=== PATIENT | female | born 1970 | race Caucasian/White ===

== ENCOUNTER → 2018-03-03 | Outpatient (CLI) | payer MEDICAID, MEDICARE ==
[~2018-03-03] VITALS: Ht 165.1 cm; Wt 117.5 kg
[~2018-03-03] MED LIST: ACTOS/METFORMIN; ASPI-84 PO; ASPI-892 PO; ASPI-983 PO; BCL10T; BPR150TCR PO; BUDE6HFA IH; CATHETER FLUSH 10 ML SYR IV PRN; CLOP75TA28 PO; CLOP75TA69 PO; CPR500T PO; CTLP20T; FAMO20TA5; GABA-490 PO; GLIM4TAB PO; GLIP10TA13; GLUCOPHAGE; HYDR-34 PO; INSASP10V SQ; INSU100I14 SQ; INSU100I16 SQ; INSU100V5 SQ; INSU100V6 SQ; JANUVIA; LISI-597 PO; LISI10TA PO; LORA10TA56 PO; LRT10T PO; LTH300C; LYRICA; MELO15TA39 PO; MELO7.5T; MELO7.5T PO; METF-380 PO; METO-387 PO; NAPR-243 PO; NAPR250T34; NF-ESOM40C; NF-ESOM40C PO; OMEP-10 PO; PGLT30T; PIOG1TAB; PIOG1TAB PO; PRAV10TA PO; PRAZOSIN; QTP200T; REGADENOSON 0.4 MG/5 ML SYR (LEXISCAN) IV ONE; ROSU20TA PO; SITA100T; SMV20T PO; SUCR1TAB PO; TR025C15 TP; TR1O15 TP; TRAM50TA2 PO; TRM50T PO; VNL75CCR; WELBUTRIN; ZOCOR; [UNRECOGNIZED DRUG - CODE] PO; [UNRECOGNIZED DRUG - REMARK]
[2018-03-03 08:03] LABS: BASOPHILS % (AUTO) 0 % (0-10); EOSINOPHILS # (AUTO) 0.1 10^3/uL (0.0-0.3); EOSINOPHILS % (AUTO) 3 % (0-10); HEMATOCRIT 46 % (35-52); HEMOGLOBIN 15.7 G/DL (11.5-16.0); LYMPHOCYTES # (AUTO) 1.2 X 10^3 (1.0-4.0); LYMPHOCYTES % (AUTO) 27 % (12-44); MEAN CORPUSCULAR HEMOGLOBIN 31 PG (25-34); MEAN CORPUSCULAR HGB CONC 35 G/DL (32-36); MEAN CORPUSCULAR VOLUME 89 FL (80-99); MEAN PLATELET VOLUME 9.4 FL (7.4-10.4); MONOCYTES # (AUTO) 0.4 X 10^3 (0.0-1.0); MONOCYTES % (AUTO) 10 % (0-12); NEUTROPHILS # (AUTO) 2.6 X 10^3 (1.8-7.8); NEUTROPHILS % (AUTO) 60 % (42-75); PLATELET COUNT 255 10^3/uL (130-400); RED BLOOD COUNT 5.14 10^6/uL (4.35-5.85); RED CELL DISTRIBUTION WIDTH 12.7 % (10.0-14.5); WHITE BLOOD COUNT 4.4 10^3/uL (4.3-11.0)
[2018-03-03 08:21] LABS: ALANINE AMINOTRANSFERASE 27 U/L (0-55); ALBUMIN 4.1 GM/DL (3.2-4.5); ALKALINE PHOSPHATASE 62 U/L (40-136); BILIRUBIN,TOTAL 0.7 MG/DL (0.1-1.0); BUN/CREATININE RATIO 22; CALCIUM 9.6 MG/DL (8.5-10.1); CARBON DIOXIDE 20 MMOL/L (21-32); CHLORIDE 107 MMOL/L (98-107); CHOLESTEROL 254 MG/DL (< 200); CREATININE SERUM 0.77 MG/DL (0.60-1.30); GFR ESTIMATED > 60; GLUCOSE 212 MG/DL (70-105); HDL CHOLESTEROL 56 MG/DL (40-60); SODIUM 140 MMOL/L (135-145); TOTAL PROTEIN 6.9 GM/DL (6.4-8.2); TRIGLYCERIDES 159 MG/DL (<150); VLDL CHOLESTEROL 32 MG/DL (5-40)
[2018-03-03 08:41] LABS: ERYTHROCYTE SEDIMENTATION RATE 11 MM/HR (0-20)
--- NOTE | 2018-03-04 14:52 | STRESS TEST ---
DATE OF SERVICE: 03/03/2018 RESTING AND POST REGADENOSON TECHNETIUM-99M TETROFOSMIN SPECT CT IMAGING CLINICAL DIAGNOSES: Coronary artery disease, hypertension, diabetes and shortness of breath. Baseline images were carried out after injection of 9.01 mCi of technetium-99m Tetrofosmin. This was followed by 0.4 mg Regadenoson and 27.5 mCi of technetium-99m Tetrofosmin for stress imaging. The electrocardiogram showed sinus rhythm at baseline. It did not change significantly with the Regadenoson infusion. The patient tolerated the procedure well. Review of images at rest and following stress does not indicate any distinct perfusion defects consistent with significant myocardial ischemia or infarction. Some degree of diaphragmatic attenuation was seen both at rest and following Regadenoson infusion. Gated images show normal global left ventricular systolic function with normal regional wall motion, including the diaphragmatic wall of the left ventricle. Left ventricular ejection fraction is 63%. Left ventricular end diastolic volume is 56 mL. TID is absent (1.11). CONCLUSIONS: 1. No evidence of any significant myocardial ischemia or infarction. 2. Normal regional wall motion. 3. Normal global left ventricular systolic function with a calculated ejection fraction of 63%. Job ID: [id number] DocumentID: [id number] Dictated Date: 03/04/2018 14:25:57 Aerial Advertiser Date: 03/04/2018 14:51:00 Dictated By: GALINA BARKER MD, MA, FACP, FACC,
== END ==
LOC: CARD 06:58
PROVIDERS: ATTEND Internal Medicine Cardiovascular Disease
DX: I25.10 Atherosclerotic heart disease of native coronary artery without angina pectoris (principal); E11.9 Type 2 diabetes mellitus without complications; I10 Essential (primary) hypertension; E78.5 Hyperlipidemia, unspecified; R06.02 Shortness of breath; E66.9 Obesity, unspecified; Z68.41 Body mass index [BMI] 40.0-44.9, adult
CPT/HCPCS: 36415; 78452; 80053; 80061; 83735; 84443; 85025; 85652; 93017

== ENCOUNTER → 2019-09-07 | Outpatient (CLI) | payer MEDICARE ==
[~2019-09-07] MED LIST changes: -CATHETER FLUSH 10 ML SYR IV PRN; -GLIM4TAB PO; +GLIM4TAB5 PO; -METO-387 PO; +MTP25TSR PO; -REGADENOSON 0.4 MG/5 ML SYR (LEXISCAN) IV ONE; -ROSU20TA PO; +ROSU20TA2 PO; -TRAM50TA2 PO
--- NOTE | 2019-09-07 10:36 | Diagnostic Imaging Report ---
PROCEDURE: CT chest without contrast. TECHNIQUE: Multiple contiguous axial images were obtained through the chest without the use of intravenous contrast. Auto Exposure Controls were utilized during the CT exam to meet ALARA standards for radiation dose reduction. INDICATION: Chronic cough. Tobaccoism for 32 years. COMPARISON: No prior studies are available for comparison. No axillary lymphadenopathy is identified. A lymph node in the high right peritracheal location demonstrates a short axis measurement of 7 mm. Additional smaller mediastinal lymph nodes in the paratracheal and prevascular regions are noted. Opal are difficult to evaluate due to absence of intravenous contrast. There are coronary arterial calcifications present. No pericardial or pleural fluid is identified. Central airways appear to be patent. Pulmonary parenchymal evaluation demonstrates small slightly nodular densities in the inferior right upper lobe measuring 6 and 7 mm in size. More inferiorly in the lingula is a slightly irregular nodule measuring 8 mm. No other pulmonary parenchymal abnormalities are seen. Upper abdomen is unremarkable. IMPRESSION: Indeterminate subcentimeter parenchymal nodular densities in the inferior right upper lobe and the lingula. These are too small to percutaneously biopsy. Consideration could be given to performance of a PET scan. If no additional study is performed, short interval CT follow-up with a repeat study in approximately 6 months would be recommended to confirm stability. Dictated by: Dictated on workstation # [id number]
== END ==
LOC: RAD 08:06
PROVIDERS: ATTEND Pediatrics
DX: R91.8 Other nonspecific abnormal finding of lung field (principal); R05 Cough
CPT/HCPCS: 71250

== ENCOUNTER → 2019-10-03 | Outpatient (CLI) | payer MEDICARE ==
--- NOTE | 2019-10-03 14:41 | Diagnostic Imaging Report ---
INDICATION: Multiple lung nodules noted on recent CT. TECHNIQUE: Serum blood glucose level at the time of injection is 200 mg/dL. Patient was administered 13.2 mCi F-18 FDG intravenously in the right forearm and PET imaging was performed from the top of skull through mid thighs. Noncontrast CT was also performed for attenuation correction and anatomic correlation. All CT scans use one or more of the following dose optimizing techniques: automated exposure control, MA and/or KvP adjustment based on a patient size and exam type, or iterative reconstruction. COMPARISON: No prior PET/CT studies are available for comparison. Comparison is made with conventional noncontrast CT chest performed on 09/07/2019. FINDINGS: Symmetric activity throughout the brain is noted. No suspicious hypermetabolism in the soft tissues of the neck is identified. Imaging through the chest does show some hypermetabolic foci in the right hilum and right subcarinal location, consistent with hypermetabolism with enlarged lymph nodes. SUV max in the right hilum is approximately 5.6. Subcarinal node demonstrates SUV max of approximately 6.9. No pulmonary parenchymal hypermetabolism is seen. Specifically, the small nodules noted on recent CT chest in the region of the right middle lobe and right upper lobe do not appear to be hypermetabolic. The lymph node in the high right paratracheal location does not appear to be hypermetabolic. Left hilum does show some smaller hypermetabolic foci with SUV max of approximately 4.2. Abdomen and pelvis demonstrate physiologic activity within the GI and tracts. No suspicious regions of hypermetabolism are identified. IMPRESSION: There are areas of hypermetabolism in the bilateral veronika and mediastinum. No pulmonary parenchymal hypermetabolism is seen. While findings could be secondary to reactive changes or perhaps from granulomatous infection, neoplastic or lymphomatous process cannot be entirely excluded. Close follow-up with conventional CT chest with IV contrast would be recommended. Dictated by: Dictated on workstation # [id number]
== END ==
LOC: RAD 09-26 07:38
PROVIDERS: ATTEND Pediatrics
DX: R91.8 Other nonspecific abnormal finding of lung field (principal)

== ENCOUNTER → 2019-10-10 | Outpatient (CLI) | payer MEDICARE ==
[~2019-10-10] MED LIST changes: +HOLD METFORMIN - RECEIVED CONTRAST 20 ML VIAL IV SCH; +IOHEXOL 350 MG/ML 100 ML (OMNIPAQUE 350) VIAL IV ONE; +NS 100 ML (IVPB) BAG IV ONE
--- NOTE | 2019-10-10 09:38 | Diagnostic Imaging Report ---
PROCEDURE: CT chest with contrast only. TECHNIQUE: Multiple contiguous axial images were obtained through the chest after administration of intravenous contrast. Auto Exposure Controls were utilized during the CT exam to meet ALARA standards for radiation dose reduction. DATE: October 10, 2019. COMPARISON: CT chest September 07, 2019. PET/CT October 03, 2019. CT chest July 07, 2006. INDICATION: 49-year-old female, chronic cough. Evaluation for hilar adenopathy. FINDINGS: On axial image 54, there are two adjacent right middle lobe pleurally based pulmonary nodules with the larger nodule measuring 6 mm in size and the adjacent smaller nodule measuring 5 mm in size. These nodules are along the right minor fissure. There is a nodule in the lingula on axial image 80 measuring 9 mm in size. There is no additional focal airspace consolidation. There is no pneumothorax. There is no pleural effusion. The central airways are patent. There are several right hilar lymph nodes such as on axial image 59 measuring up to 1.7 cm in short axis. There is a subcarinal lymph node on axial image 57 measuring 1.7 cm in short axis. There are left hilar lymph nodes which measure up to approximately 10 mm in short axis. AP window lymph nodes are present measuring up to approximately 6 mm in short axis. There is a precarinal lymph node on axial image 43 measuring 7 mm in short axis. There is a right paratracheal lymph node on axial image 36 measuring 7 mm in short axis. There is no identified abnormally enlarged axillary lymph node or supraclavicular lymph node. There is a low-attenuation nodule in the right lobe of the thyroid measuring approximately 1.5 cm in size. The heart is not enlarged. There is no identified pericardial effusion. There is no identified large central pulmonary embolus. The study is very limited for evaluation of segmental and subsegmental pulmonary emboli. The patient is status post cholecystectomy. There is an accessory splenule on axial image 126. Additional evaluation of the imaged portions of the upper abdomen is unremarkable. There are multilevel degenerative changes of the spine. There is a lucent lesion with internal fat on sagittal image 115 involving the T9 vertebral body. The presence of internal fat is highly suggestive of a benign finding. IMPRESSION: 1. Abnormally enlarged right hilar, subcarinal, left hilar, and additional mildly prominent mediastinal lymph nodes as detailed above. These are new since 2006 and at least the right hilar and subcarinal lymph nodes are FDG avid on the recent PET/CT. Lymphoma, metastatic thania disease, and benign processes such as sarcoidosis or other benign etiologies are in the differential diagnosis. Prompt workup for definitive diagnosis is needed. 2. There is a 9 mm pulmonary nodule in the lingula and pleurally based right middle lobe pulmonary nodules which are subcentimeter in size and not FDG avid on the prior recent PET/CT. Recommend short-term followup CT chest in 3 months to evaluate for potential stability. The 9 mm nodule in the lingula is unchanged since September 07, 2019. Dictated by: Dictated on workstation # [id number]
== END ==
LOC: RAD 08:30
PROVIDERS: ATTEND Pediatrics
DX: R59.0 Localized enlarged lymph nodes (principal); R05 Cough; R91.1 Solitary pulmonary nodule
CPT/HCPCS: 71260

== ENCOUNTER → 2020-01-18 | Outpatient (CLI) | payer MEDICARE ==
[~2020-01-18] MED LIST changes: +ASPI-1238 PO; -ASPI-983 PO; -HOLD METFORMIN - RECEIVED CONTRAST 20 ML VIAL IV SCH; -IOHEXOL 350 MG/ML 100 ML (OMNIPAQUE 350) VIAL IV ONE; -NS 100 ML (IVPB) BAG IV ONE
[2020-01-18 13:46] VITALS: BP 101/60
== END ==
LOC: RT 13:00
PROVIDERS: ATTEND Internal Medicine Critical Care Medicine
DX: D86.9 Sarcoidosis, unspecified (principal)
CPT/HCPCS: 94060; 94726; 94729; 94761

== ENCOUNTER → 2020-06-18 | Outpatient (CLI) | payer MEDICARE ==
--- NOTE | 2020-06-18 09:16 | Diagnostic Imaging Report ---
EXAMINATION: CT Chest without contrast. TECHNIQUE: Multiple contiguous axial images were obtained through the chest without the use of intravenous contrast. All CT scans use one or more of the following dose optimizing techniques: automated exposure control, MA and/or KvP adjustment based on a patient size and exam type, or iterative reconstruction. HISTORY: Sarcoidosis, pulmonary nodules. COMPARISON: 10/10/2019 FINDINGS: There is no edema or pneumonia. No pleural effusion. No pneumothorax. No suspicious nodules. There are few stable perifissural lymph nodes along the right minor fissure. No perilymphatic nodules or bronchovascular thickening. There is no axillary or supraclavicular lymphadenopathy. There is stable subcarinal lymphadenopathy with subcarinal nodes measuring up to 11 mm. Heart size is normal. There are moderate coronary artery calcifications. No pericardial effusion. Aorta is normal in caliber. Limited views of the upper abdomen show an absent gallbladder. There are no suspicious osseous lesions. IMPRESSION: 1. Stable subcarinal lymphadenopathy. 2. No suspicious pulmonary nodules. Stable perifissural lymph nodes along the minor fissure. Dictated by: Dictated on workstation # [id number]
== END ==
PROVIDERS: ATTEND Internal Medicine Critical Care Medicine
DX: D86.9 Sarcoidosis, unspecified (principal); R59.0 Localized enlarged lymph nodes; R91.8 Other nonspecific abnormal finding of lung field
CPT/HCPCS: 71250

== ENCOUNTER → 2021-05-13 | Outpatient (CLI) | payer MEDICARE ==
--- NOTE | 2021-05-13 13:45 | Diagnostic Imaging Report ---
EXAMINATION: CT chest without contrast. TECHNIQUE: Multiple contiguous axial images were obtained through the chest without the use of intravenous contrast. All CT scans use one or more of the following dose optimizing techniques: automated exposure control, MA and/or KvP adjustment based on patient size and exam type or iterative reconstruction. HISTORY: Sarcoidosis COMPARISON: 06/18/2020 FINDINGS: There are new mild areas of peribronchial vascular reticulations predominantly in the upper lobes. This also involves the left lower lobe to a small degree. No pleural effusion. No pneumothorax. No suspicious nodules. There is no axillary or supraclavicular lymphadenopathy. Subcarinal lymph node is increased in size measuring 2.3 cm previously 1.7 cm. Other mediastinal lymph nodes are also mildly increased in size. Heart size is normal. There are severe coronary artery calcifications. No pericardial effusion. Aorta is normal in caliber. Limited views of the upper abdomen show changes of cholecystectomy. There are no suspicious osseus lesions. IMPRESSION: 1. New mild perihilar microvascular reticulations and ground glass concerning for progression of sarcoidosis. 2. Mediastinal lymph nodes have mildly increased in size as well. Dictated by: Dictated on workstation # [id number]
== END ==
PROVIDERS: ATTEND Internal Medicine Critical Care Medicine
DX: D86.9 Sarcoidosis, unspecified (principal); R91.8 Other nonspecific abnormal finding of lung field; R59.0 Localized enlarged lymph nodes
CPT/HCPCS: 71250

== ENCOUNTER 2021-11-19 07:03 | Outpatient (CLI) | payer MEDICARE ==
[~2021-11-19] VITALS: Ht 170.2 cm; Wt 132.9 kg
[2021-11-19] MEDS ORDERED: ALIR75PE5 SQ (16:30)
[2021-11-19] MEDS ORDERED: INSU100I29 SQ (16:30)
[2021-11-19] MEDS ORDERED: MULT-974 PO (16:30)
[2021-11-19] MEDS ORDERED: LORA10TA7 PO (16:30)
[2021-11-19] MEDS ORDERED: DAPA5TAB PO (16:30)
== END 2021-11-19 16:39 | disposition home or self-care (01) ==
LOC: PREOP 07:03
PROVIDERS: ATTEND Surgery
DX: Z01.818 Encounter for other preprocedural examination (principal)

== ENCOUNTER 2021-12-02 10:28 | Day surgery (SDC) | payer MEDICARE ==
[~2021-12-02] VITALS: Ht 170 cm; Wt 132.9 kg
[~2021-12-02 10:28] MED LIST changes: +ALIR75PE5 SQ; +DAPA5TAB PO; +INSU100I29 SQ; +LORA10TA7 PO; +MULT-974 PO
[2021-12-02] MEDS ORDERED: LACTATED RINGERS 1,000 ML IV ONE (10:36)
[2021-12-02] MEDS ORDERED: LACTATED RINGERS 1,000 ML IV STA (10:39)
[2021-12-02 10:55] VITALS: BP 151/80
[2021-12-02] MEDS ORDERED: DAPA10TA PO (11:03)
[2021-12-02] MEDS ORDERED: INSU100I29 SQ (11:03)
[2021-12-02] MEDS ORDERED: CARV6.252 PO (11:03)
[2021-12-02] MEDS ORDERED: METH2.5T PO (11:03)
[2021-12-02] MEDS ORDERED: LOSA50TA2 PO (11:03)
[2021-12-02] MEDS ORDERED: FOLI1TAB33 PO (11:03)
[2021-12-02] MEDS ORDERED: FLUT9.9S NS (11:03)
[2021-12-02] MEDS ORDERED: LIRA0.6P3 SQ (11:03)
[2021-12-02] MEDS ORDERED: INSU100C3 SQ (11:03)
[2021-12-02] MEDS ORDERED: PROP40TA5 PO (11:03)
[2021-12-02] MEDS ORDERED: PROPOFOL INJECTION 50 ML IV ONE ×2 (11:37→12:05)
--- NOTE | 2021-12-02 11:53 | Progress Note-Pre Operative ---
Pre-Operative Progress Note Date of Available H&P: Nov 05, 2021 Date H&P Reviewed: Dec 02, 2021 Time H&P Reviewed: 11:30 History & Physical: H&P Reviewed, Patient Examed, No changes noted Pre-Operative Diagnosis: family hx colon cancer and personal hx polyps EDUARDO OSEI DO Dec 02, 2021 11:53
--- NOTE | 2021-12-02 12:27 | Progress Note-Post Operative ---
Post-Operative Progess Note Surgeon (s)/Twist Maker (s) Surgeon EDUARDO OSEI DO Twist Maker: na Pre-Operative Diagnosis family hx colon cancer and personal hx polyps Post-Operative Diagnosis colon polyps Procedure & Operative Findings Date of Procedure 12/02/21 Procedure Performed/Findings colonoscopy c hot bx polypectomy x 3 Anesthesia Type per arnp Estimated Blood Loss Estimated blood loss (mL): none Specimens/Packing Specimens Removed colon polyps EDUARDO OSEI DO Dec 02, 2021 12:27
--- NOTE | 2021-12-02 12:28 | Discharge Inst-Simple/Standard ---
Discharge Inst-Standard Patient Instructions/Follow Up Plan of Care/Instructions/FU: 2 weeks Mitchell Activity as Tolerated: Yes Discharge Diet: Regular Diet EDUARDO OSEI DO Dec 02, 2021 12:28
[2021-12-02 12:30] VITALS: BP 123/82
[2021-12-02 12:35] VITALS: BP 119/57
[2021-12-02 13:05] VITALS: BP 132/77
--- NOTE | 2021-12-02 14:03 | Anesthesia-General Post-Op ---
MAC Patient Condition Mental Status/LOC: Same as Preop Cardiovascular: Satisfactory Nausea/Vomiting: Absent Respiratory: Satisfactory Pain: Controlled Complications: Absent Post Op Complications Complications None Follow Up Care/Instructions Patient Instructions None needed. Anesthesiology Discharge Order Discharge Order Patient is doing well, no complaints, stable vital signs, no apparent adverse anesthesia problems. No complications reported per nursing. KELSIE NUNEZ CRNA Dec 02, 2021 14:03
--- NOTE | 2021-12-02 19:40 | OPERATIVE REPORT ---
DATE OF SERVICE: 12/02/2021 PREOPERATIVE DIAGNOSES: Family history of colon cancer, personal history of polyps. POSTOPERATIVE DIAGNOSIS: Colon polyps. PROCEDURE: Colonoscopy with hot biopsy polypectomy x3. SURGEON: Eduardo Medrano DO ANESTHESIA: Per STAGE TECHNICIAN. ESTIMATED BLOOD LOSS: None. COMPLICATIONS: None. SPECIMENS: Colon polyps. INDICATIONS: The patient is a 51-year-old female with family history of colon cancer and history of polyps. She understands risks and benefits of procedure and wishes to proceed. Consent was signed in the chart. DESCRIPTION OF PROCEDURE: The patient was taken to the endoscopy suite, placed in left lateral recumbent position. Timeout was performed. Digital rectal exam was performed. No palpable polyps, masses or ulcerations. Scope was inserted in the rectum and advanced all the way to cecum with minimal difficulty. Prep was adequate with irrigation and suction. Scope was slowly retracted back. No polyps, masses or ulcerations within the cecum, ascending colon, transverse colon, two small polyps were present, hot biopsy polypectomies were performed. Scope was then slowly retracted back. No polyps, masses or ulcerations within the descending and sigmoid colon. Once in the rectum, another polyp was present, which hot biopsy polypectomy was performed. Scope was inserted and retracted multiple times, noting no other pathology. Scope was then removed, noting no other pathology. RECOMMENDATIONS: The patient will follow up on pathology. We would recommend repeat colonoscopy in 3 years. Further recommendations pending pathology. Job ID: [id number] DocumentID: [id number] Dictated Date: 12/02/2021 12:30:32 Family Dentist Date: 12/02/2021 19:39:52 Dictated By: EDUARDO MEDRANO DO
== END 2021-12-02 13:20 | disposition home or self-care (01) ==
LOC: ENDO 10:28
PROVIDERS: ATTEND Surgery
DX: D12.3 Benign neoplasm of transverse colon (principal); K62.1 Rectal polyp; R15.9 Full incontinence of feces; Z80.0 Family history of malignant neoplasm of digestive organs; Z79.82 Long term (current) use of aspirin; Z79.4 Long term (current) use of insulin; Z87.891 Personal history of nicotine dependence; E66.01 Morbid (severe) obesity due to excess calories; Z68.42 Body mass index [BMI] 45.0-49.9, adult; Z95.5 Presence of coronary angioplasty implant and graft
CPT/HCPCS: 84703; 88305

== ENCOUNTER → 2022-02-27 | Outpatient (CLI) | payer MEDICARE ==
[~2022-02-27] MED LIST changes: +CARV6.252 PO; +DAPA10TA PO; +FLUT9.9S NS; +FOLI1TAB33 PO; +INSU100C3 SQ; +LIRA0.6P3 SQ; +LOSA50TA2 PO; +METH2.5T PO; +PROP40TA5 PO
== END ==
LOC: CARD 09:25
PROVIDERS: ATTEND Pediatrics
DX: I49.8 Other specified cardiac arrhythmias (principal)
CPT/HCPCS: 93225; 93226

== ENCOUNTER 2022-04-14 06:42 | Day surgery (SDC) | payer MEDICARE ==
[~2022-04-14] VITALS: Ht 170.2 cm; Wt 129.2 kg
[~2022-04-14 06:42] MED LIST changes: +CLOP-31 PO; -CLOP75TA69 PO
[2022-04-14] MEDS ORDERED: NS IV 1000 ML 1,000 ML IV SCH (07:00)
[2022-04-14] MEDS ORDERED: HEParin (CATH LAB) 2,000 ML IV ONE (07:05)
[2022-04-14] MEDS ORDERED: NS IV 1000 ML 1,000 ML ONE (07:05)
[2022-04-14] MEDS ORDERED: LIDOCAINE 1% INJ 30 ML (XYLOCAINE) VIAL ONE (07:05)
[2022-04-14 07:27] VITALS: BP 144/76
[2022-04-14 07:38] LABS: HEMATOCRIT 46 % (35-52); HEMOGLOBIN 15.8 g/dL (11.5-16.0); MEAN CORPUSCULAR HEMOGLOBIN 32 pg (25-34); MEAN CORPUSCULAR HGB CONC 34 g/dL (32-36); MEAN CORPUSCULAR VOLUME 92 fL (80-99); MEAN PLATELET VOLUME 9.6 fL (9.0-12.2); PLATELET COUNT 270 10^3/uL (130-400); WHITE BLOOD COUNT 6.3 10^3/uL (4.3-11.0)
[2022-04-14 07:46] LABS: INR 0.9 (0.8-1.4); PROTHROMBIN TIME PATIENT 12.7 SEC (12.2-14.7)
[2022-04-14] MEDS ORDERED: CLOP-31 PO (07:48)
[2022-04-14] MEDS ORDERED: CARV12.53 PO (07:48)
[2022-04-14] MEDS ORDERED: LOSA50TA2 PO (07:48)
[2022-04-14] MEDS ORDERED: INSU100I14 SQ (07:48)
[2022-04-14] MEDS ORDERED: PANT40TA52 PO (07:48)
[2022-04-14] MEDS ORDERED: INSU100I32 SQ (07:48)
[2022-04-14] MEDS ORDERED: LIRA0.6P SQ (07:48)
[2022-04-14] MEDS ORDERED: DAPA10TA PO (07:48)
[2022-04-14 07:56] LABS: ALBUMIN 4.2 GM/DL (3.2-4.5); BILIRUBIN,TOTAL 1.3 MG/DL (0.1-1.0); CALCIUM 9.2 MG/DL (8.5-10.1); CREATININE SERUM 0.74 MG/DL (0.60-1.30); TOTAL PROTEIN 7.4 GM/DL (6.4-8.2)
[2022-04-14] MEDS ORDERED: fentaNYL INJ 100 MCG/2 ML AMP ONE ×2 (08:03→09:25)
[2022-04-14] MEDS ORDERED: MIDAZOLAM 5 MG/5 ML (VERSED) VIAL ONE (08:03)
[2022-04-14] MEDS ORDERED: NITRO DRIP 25000 MCG/D5W 250 ML IV ONE ×2 (08:48→10:22)
[2022-04-14] MEDS ORDERED: HEParin 1000 UNIT/ML (10ML VIAL) FOR BOLUS ONE (08:48)
[2022-04-14] MEDS ORDERED: morphine INJ 4 MG/ML 1 ML (VIAL/SYRINGE) ONE ×2 (09:09→10:20)
[2022-04-14] MEDS ORDERED: MIDAZOLAM 2 MG/2 ML (VERSED) VIAL ONE ×2 (09:20→09:56)
[2022-04-14] MEDS ORDERED: niCARdipine IV 50 MG (PYXIS DRIP KIT) ONE (09:59)
[2022-04-14] MEDS ORDERED: NS (IVPB) 0 ML ONE (09:59)
[2022-04-14] MEDS ORDERED: HEParin (CATH LAB) 1,000 ML IV ONE (10:09)
[2022-04-14] MEDS ORDERED: ADENOSINE 6 MG/2 ML (ADENOCARD) VIAL IV ONE (10:09)
[2022-04-14] MEDS ORDERED: NS (IVPB) 250 ML ONE (10:09)
[2022-04-14] MEDS ORDERED: EPTIFIBATIDE BOLUS 20 ML IV ONE (10:26)
[2022-04-14] MEDS ORDERED: EPTIFIBATIDE BOLUS 10 ML IV ONE (10:31)
--- NOTE | 2022-04-14 11:03 | Cardiac Procedure Note-CS/ASA ---
Pre-Procedure Note Pre-Op Procedure Note Date of Available H&P: Mar 30, 2022 Date H&P Reviewed: Apr 14, 2022 Time H&P Reviewed: 08:30 History & Physical: H&P Reviewed, No changes noted Conscious Sedation Pre-Proced ASA Score 3 For ASA 3 and 4: Consider anesthesia and medical clearance. Also, for patients with a history of failed moderate sedation consider anesthesia. Airway Lungs Heart ASA score ASA 1: a normal healthy patient ASA 2: a patient with a mild systemic disease (mid diabetes, controlled hypertension, obesity ASA 3: a patient with a severe systemic disease that limits activity (angina, COPD, prior Myocardial infarction) ASA 4: a patient with an incapacitating disease that is a constant threat to life (CHF, renal failure) ASA 5: a moribund patient not expected to survive 24 hrs. (ruptured aneurysm) ASA 6: a declared brain- patient whose organs are being harvested. For emergent operations, add the letter E after the classification Mallampati Classification Grade 3 Sedation Plan Analgesia, Amnesia, Plan communicated to team members The patient is an appropriate candidate to undergo the planned procedure, sedation, and anesthesia. The patient immediately re-assessed prior to indication. GALINA BARKER MD FACP [facility] Apr 14, 2022 11:03
[2022-04-14] MEDS ORDERED: CLOPIDOGREL 75 MG (PLAVIX) TABLET ONE (11:04)
[2022-04-14] MEDS ORDERED: ASPIRIN 81 MG CHEW (CHILDREN'S ASA) ONE (11:04)
[2022-04-14] MEDS ORDERED: INSULIN DEGLUDEC 110 UNIT SQ SCH (11:15)
[2022-04-14] MEDS ORDERED: PATIENT MAY USE OWN MEDS, ALL PO SCH (11:15)
[2022-04-14] MEDS ORDERED: morphine INJ 10 MG/ML 1ML (SYR OR VIAL) IVP PRN (11:15)
[2022-04-14 11:20] VITALS: BP 136/80
[2022-04-14 11:30] VITALS: BP 136/82
[2022-04-14] MEDS: NS IV 1000 ML 1,000 ML IV SCH ×2 (12:00→21:33)
[2022-04-14] MEDS: inSUlin ASPART (NovoLOG) 1 UNIT/0.01 ML (CHARGE PER UNIT) SQ SCH ×2 (13:00→20:07)
[2022-04-14] MEDS ORDERED: ATROPINE INJ 0.4 MG/ML SDV ONE (13:20)
[2022-04-14 15:46] VITALS: BP 130/83
[2022-04-14] MEDS ORDERED: GABAPENTIN 400 MG (NEURONTIN) CAP PO SCH (21:00)
--- NOTE | 2022-04-15 07:53 | Progress Note - Cardiology ---
Cardiology SOAP Progress Note Subjective: Lying in bed C/O mild tenderness at right groin site No c/o SOB or palpitations C/O tenderness in her chest Objective: I&O/Vital Signs 04/14/22 04/15/22 04/15/22 04/15/22 23:49 01:00 03:28 07:18 Temp 36.4 36.1 Pulse 87 86 88 92 Resp 18 20 B/P (MAP) 129/73 (91) 132/78 (96) Pulse Ox 98 96 O2 Delivery Room Air Room Air 04/15/22 07:32 Temp 36.1 Pulse 88 Resp 24 B/P (MAP) 117/81 (93) Pulse Ox 97 04/15/22 00:00 Intake Total 1320 ml Output Total 1000 ml Balance 320 ml Weight (Pounds): 259 Weight (Ounces): 0.0 Weight (Calculated Kilograms): 117.136409 Side: right Groin site without hematoma: Yes Condition: DP/PT pulses palpable, extremity w/d/p Bruising: mild bruising Constitutional: AAO x 3, well-developed, well-nourished Respiratory: No accessory muscle use, No respiratory distress; chest expansion is symmetric, chest is bilaterally symmetric, lungs clear to auscultation Cardiovascular: regular rate-rhythm; No JVD; S1 and S2 Gastrointestional: No tender; soft, round, audible bowel sounds Extremities: no lower extremity edema bilateral Neurologic/Psychiatric: grossly intact (moves all extremities) Skin: No rash on exposed areas, No ulcerations on exposed areas Results/Procedures: Labs Laboratory Tests 04/14/22 16:12: Glucometer 150H 04/14/22 20:04: Glucometer 216H Microbiology 04/14/22 MRSA Screen - Final, Complete MRSA not isolated A/P: Assessment: Coronary artery disease - Cardiac cath November 2014: primarily consisting of 95% in-stent restenosis within a MiniVision 2 x 18 mm stent that was placed in the LAD November 2014. To this, successful balloon angioplasty was carried out, followed by drug eluting stenting with Promus Premier 2.5 x 28 mm stent on 02/09/15, which reduced the s tenosis to 0%residual; the distal right coronary artery has approximately 60% stenosis that was not intervened on; there was normal global left ventricular systolic function with an ejection fraction of approximately 65%; LVEDP was elevated; there was no significant MR - MPI of Mar 03, 2018 showed no evidence of any significant myocardial ischemia or infarction. LVEF63%Hypertension - ECG on 03/30/22: NSR cannot exclude ole ASMI or IMI (unchanged compared to ECG of 02/20/15) - S/P cardiac cath on 04-14-22 with successful PCI Palpitations - Holter of 04/29/21 is reported to hae shown a few PVCs but symptoms have since worsened Hyperlipidemia - reported intolerance to Pravastatin; intol to atorvastatin (memory loss) DM 2 IBS GERD Quit smoking in 2014 Carotid dz - Carotid us of Mar 14, 2018 showed mild bilat carotid disease Plan: Ok to discharge home today if lab is ok - BMP and CBC pending this morning Continue current medication regimen Advise f/u in 3-4 weeks or sooner if needed SOFIA REHMAN Apr 15, 2022 07:53
--- NOTE | 2022-04-15 07:55 | Discharge Inst-Cardiology ---
Discharge Inst-Cardiac Discharge Medications Continued Medications: Aspirin (Aspirin EC) 81 Mg Tablet.dr 81 MG PO DAILY, TAB Carvedilol (Carvedilol) 12.5 Mg Tablet 12.5 MG PO BID, TAB Clopidogrel Bisulfate (Plavix) 75 Mg Tablet 75 MG PO DAILY, TAB Dapagliflozin Propanediol (Farxiga) 10 Mg Tablet 10 MG PO DAILY, TAB Fluticasone Propionate (Flonase Allergy Relief) 50 Mcg/Actuation [place].susp 1 SPRAY NS DAILY, #1 EACH 1 SPRAY EACH NARE DAILY Folic Acid (Folic Acid) 1 Mg Tablet 1 MG PO DAILY, TAB Gabapentin (Gabapentin) 400 Mg Capsule 400 MG PO HS, CAP Insulin Aspart (Novolog Flexpen) 100 Unit/Ml (3 Ml) Solution 60 UNITS SQ TID, EA Insulin Degludec (Tresiba Flextouch U-100) 100 Unit/Ml (3 Ml) Insuln.pen 110 UNIT SQ AM, EA Liraglutide (Victoza 2-Lanre) 0.6 Mg/0.1 Ml (18 Mg/3 Ml) Pen.injctr 2.4 MG SQ DAILY, EA Loratadine (Loratadine) 10 Mg Tablet 10 MG PO DAILY, TAB Losartan Potassium (Cozaar) 50 Mg Tablet 50 MG PO DAILY, TAB Methotrexate Sodium (Methotrexate) 2.5 Mg Tablet 15 MG PO WEDNESDAY, TAB TAKES 6 OF THE 2.5 MG TABLETS ON WEDNESDAY Pantoprazole Sodium (Pantoprazole Sodium) 40 Mg Tablet.dr 40 MG PO DAILY, TAB Patient Instructions Patient Instructions: Please schedule follow up appointment to see Dr. Davies in 3-4 weeks SOFIA REHMAN Apr 15, 2022 07:55
[2022-04-15] MEDS: NS IV 1000 ML 1,000 ML IV SCH (08:21)
[2022-04-15] MEDS: inSUlin ASPART (NovoLOG) 1 UNIT/0.01 ML (CHARGE PER UNIT) SQ SCH ×2 (08:58→12:14)
[2022-04-15] MEDS ORDERED: FLUTICASONE NASAL SPRAY (FLONASE) 16 GM BTL NS SCH (09:00)
[2022-04-15] MEDS ORDERED: EMPAGLIFLOZIN 10 MG TABLET (JARDIANCE) PO SCH (09:00)
[2022-04-15] MEDS ORDERED: LIRAGLUTIDE SQ SCH (09:00)
[2022-04-15] MEDS ORDERED: LOSARTAN 50 MG (COZAAR) TAB PO SCH (09:00)
[2022-04-15] MEDS ORDERED: CLOPIDOGREL 75 MG (PLAVIX) TABLET PO SCH (09:00)
[2022-04-15] MEDS ORDERED: FOLIC ACID 1 MG TAB PO SCH (09:00)
[2022-04-15] MEDS ORDERED: ASPIRIN E.C. 81 MG (ECOTRIN) TAB PO SCH (09:00)
[2022-04-15] MEDS ORDERED: LORATADINE (CLARITIN) 10 MG TAB PO SCH (09:00)
[2022-04-15] MEDS ORDERED: NON-FORMULARY MEDICATION 1 EA EA (Dapagliflozin Propanediol (Farxiga) 10 MG) PO SCH (09:00)
[2022-04-15] MEDS ORDERED: PANTOPRAZOLE 40 MG (PROTONIX) TAB PO SCH (09:00)
[2022-04-15 09:55] LABS: HEMATOCRIT 43 % (35-52); HEMOGLOBIN 14.8 g/dL (11.5-16.0); MEAN CORPUSCULAR HEMOGLOBIN 32 pg (25-34); MEAN CORPUSCULAR HGB CONC 34 g/dL (32-36); MEAN CORPUSCULAR VOLUME 92 fL (80-99); MEAN PLATELET VOLUME 9.7 fL (9.0-12.2); PLATELET COUNT 264 10^3/uL (130-400); WHITE BLOOD COUNT 5.3 10^3/uL (4.3-11.0)
[2022-04-15 10:18] LABS: CREATININE SERUM 0.67 MG/DL (0.60-1.30); POTASSIUM 3.5 MMOL/L (3.6-5.0)
[2022-04-15] MEDS ORDERED: KCL 20 MEQ TAB (K-DUR) PO NR (11:30)
[2022-04-15 11:48] VITALS: BP 117/81
--- NOTE | 2022-04-15 12:18 | Progress Note - Cardiology ---
Cardiology SOAP Progress Note Subjective: No cp or palp or syncope or shortness of breath Does not report groin or leg discomfort or discoloration No n/v/d No focal weakness Objective: I&O/Vital Signs 04/15/22 04/15/22 04/15/22 04/15/22 01:00 03:28 07:18 07:32 Temp 36.1 36.1 Pulse 86 88 92 88 Resp 20 24 B/P (MAP) 132/78 (96) 117/81 (93) Pulse Ox 96 97 O2 Delivery Room Air 04/15/22 08:00 O2 Delivery Room Air 04/15/22 00:00 Intake Total 1320 ml Output Total 1000 ml Balance 320 ml Weight (Pounds): 259 Weight (Ounces): 0.0 Weight (Calculated Kilograms): 117.277452 Side: right Groin site without hematoma: Yes Condition: DP/PT pulses palpable, extremity w/d/p Bruising: mild bruising Constitutional: AAO x 3, well-developed, well-nourished Respiratory: No accessory muscle use, No respiratory distress; chest expansion is symmetric, chest is bilaterally symmetric, lungs clear to auscultation Cardiovascular: regular rate-rhythm; No JVD; S1 and S2 Gastrointestional: No tender; soft, round, audible bowel sounds Extremities: no lower extremity edema bilateral Neurologic/Psychiatric: grossly intact (moves all extremities) Skin: No rash on exposed areas, No ulcerations on exposed areas Results/Procedures: Labs Laboratory Tests 04/14/22 16:12: Glucometer 150H 04/14/22 20:04: Glucometer 216H 04/15/22 09:05: White Blood Count 5.3, Red Blood Count 4.68, Hemoglobin 14.8, Hematocrit 43, Mean Corpuscular Volume 92, Mean Corpuscular Hemoglobin 32, Mean Corpuscular Hemoglobin Concent 34, Red Cell Distribution Width 12.6, Platelet Count 264, Mean Platelet Volume 9.7, Sodium Level 136, Potassium Level 3.5L, Chloride Level 102, Carbon Dioxide Level 23, Anion Gap 11, Blood Urea Nitrogen 11, Creatinine 0.67, Estimat Glomerular Filtration Rate 106, BUN/Creatinine Ratio 16, Glucose Level 239H, Calcium Level 9.0 04/15/22 10:38: Glucometer 160H Microbiology 04/14/22 MRSA Screen - Final, Complete MRSA not isolated A/P: Assessment: Coronary artery disease - Cardiac cath November 2014: primarily consisting of 95% in-stent restenosis within a MiniVision 2 x 18 mm stent that was placed in the LAD November 2014. To this, successful balloon angioplasty was carried out, followed by drug eluting stenting with Promus Premier 2.5 x 28 mm stent on 02/09/15, which reduced the stenosis to 0%residual; the distal right coronary artery has approximately 60% stenosis that was not intervened on; there was normal global left ventricular systolic function with an ejection fraction of approximately 65%; LVEDP was elevated; there was no significant MR - MPI of Mar 03, 2018 showed no evidence of any significant myocardial ischemia or infarction. LVEF63%Hypertension - ECG on 03/30/22: NSR cannot exclude ole ASMI or IMI (unchanged compared to ECG of 02/20/15) - Cardiac cath on 04-14-22: 95% - 99% instent LAD to which complex but successful PCI (balloon and cutting balloon angioplasty) was undertaken with reduction of stenosis to less than 10%. Distal LAD, LCx, and RCA have diffuse moderate disease, LVEF 60% Palpitations - Holter of 04/29/21 is reported to hae shown a few PVCs but symptoms have since worsened Hyperlipidemia - reported intolerance to Pravastatin; intol to atorvastatin (memory loss) DM 2 IBS GERD Quit smoking in 2014 Carotid dz - Carotid us of Mar 14, 2018 showed mild bilat carotid disease Plan: Ok to discharge home today Labs reviewed I discussed his cath findings and the details of her complex but successful interventional procedure with her in detail and answered questions Continue current medication regimen Advise f/u in 3-4 weeks or sooner if needed GALINA BARKER MD FACP [facility] Apr 15, 2022 12:18
--- NOTE | 2022-04-16 10:17 | CARDIAC CATHETERIZATION ---
DATE OF SERVICE: 04/14/2022 CARDIAC CATHETERIZATION AND CORONARY INTERVENTION REPORT The patient is a 51-year-old lady who has a history of coronary artery disease and who has been having symptoms of recurrent angina. Cardiac catheterization was carried out today after having obtained an informed consent. Consent was also obtained for ad hoc coronary intervention, if needed. DESCRIPTION OF PROCEDURE: She was brought to the heart catheterization laboratory in a fasting state. Right groin was prepared and draped in the usual sterile fashion. 1% lidocaine was used for local anesthesia. Modified Seldinger technique was used to advance a 5-Prydeinig sheath into the right femoral artery. This later had to be changed to a 6-Prydeinig sheath. We used a 6-Prydeinig JL3.5 catheter to carry out left coronary angiography and a 6-Prydeinig JR4 catheter to carry out right coronary angiography. A 5-Prydeinig pigtail catheter was used for left heart catheterization, left ventricular coronary angiography. Subsequently, IFR measurement was carried out in the left anterior descending artery and it is described below. IFR MEASUREMENT IN THE LEFT ANTERIOR DESCENDING: The left anterior descending artery was exhibiting 90-95% in-stent restenosis. We carried out IFR measurement to confirm that the lesion was hemodynamically significant. We used a 6-Prydeinig JL3.5 guide catheter to engage the left coronary artery and advanced a pressure wire across the lesion that was placed in the end of the distal vessel. IFR was 0.49, indicating that the patient was hemodynamically significant. We carried out percutaneous intervention of this vessel as described below. PERCUTANEOUS INTERVENTION TO THE LEFT ANTERIOR DESCENDING: We had the left coronary artery engaged with a 6-Prydeinig JL3.5 guide catheter. We had a pressure wire advanced across the lesion, which was indicating that the lesion was hemodynamically significant. We carried out multiple balloon angioplasty procedures. This was an extremely complex and long procedure because the most severe lesion was in the proximal to mid portion of the stented segment and was extremely resistant to angioplasty. We used several different balloons including 2.5 mm, 2.75 mm and 3 mm balloons. We used both compliant and noncompliant balloons. We also used 2.5 mm cutting balloon. Finally, with the use of the cutting balloon and subsequent use of a 2.75 noncompliant balloon, we were able to reduce the stenosis in the stent to less than 10% (estimated to be 5-9%). However, the distal flow following the last balloon procedure was FIDENCIO 0. No dissection was seen. We had wired the left anterior descending artery throughout its extent. We carried a balloon angioplasty with 1.5 mm and 2 mm balloons in the mid and distal left anterior descending. Flow gradually improved. No dissection was seen. It is unclear as to what the cause of transient loss of flow in the distal coronary artery was. It appears that there may have air embolism from a balloon that ruptured at high inflation pressure. Following multiple balloon angioplasty procedures in the distal left anterior descending and following intracoronary nitroglycerin and nicardipine, we were able to eventually restore normal flow throughout the vessel. The final result is that the in-stent restenosis has reduced to less than 10% (5-9%) and the distal flow in the left anterior descending artery is FIDENCIO 3. This is a marked improvement over what we have started with (95% in-stent restenosis and FIDENCIO 2 flow). This was an extremely long and complex procedure that required significantly more contrast and x-ray imaging than his usual. This was necessary because of the complexity of the procedure. Overall, the patient tolerated the procedure well except for discomfort from lying on the table for this long and from chest discomfort during balloon inflations. At the end of the procedure, she is asymptomatic and healing well and is hemodynamically stable. The sheath was sutured in place and is to be removed manually on the floor. Left ventricular coronary angiography was carried out in the right anterior oblique projection. Global left ventricular systolic function is normal. No regional wall motion abnormalities are seen. Left ventricular ejection fraction approximately 60%. HEMODYNAMICS: Left ventricular end diastolic pressure, following coronary angiography is 16 mmHg. There is no significant pressure gradient on pullback across the aortic valve. CORONARY ANGIOGRAPHY: Left main coronary artery appears free of significant disease. Left anterior descending artery has a long stented segment in its mid and proximal portion that was exhibiting 95% mid vessel stenosis, until which complex, but successful intervention was undertaken (see details above). The final result is that there is no significant residual stenosis (5-9%) and flow throughout the vessel is FIDENCIO 3. A diagonal branch of the left anterior descending artery has 80% mid vessel stenosis. There is a small caliber vessel [ ]. The left circumflex artery has diffuse moderate disease. Left circumflex artery is nondominant. Right coronary artery is dominant and has diffuse moderate disease. CONCLUSIONS: 1. Complex, but successful percutaneous intervention to 95% in-stent restenosis within a long stented segment in the proximal and mid left anterior descending (known to be overlapping stents that are Mini Vision 2 x 18 distally and a Prymus Premier 2.5 x 28 mm proximally, overlapping). Balloon angioplasty and cutting balloon angioplasty reduced this stenosis to less than 10% residual and flow throughout the vessel at the conclusion of the procedure is FIDENCIO 3. The left circumflex and the right coronary artery exhibited moderate diffuse disease. Right coronary artery is dominant. The first diagonal branch and left anterior descending artery has significant mid vessel disease, but is of small caliber and that was not intervened on. 2. Normal global left ventricular systolic function with an ejection fraction of approximately 50%. 3. Elevated left ventricular end diastolic pressure of 16 mmHg. Job ID: [id number] DocumentID: [id number] Dictated Date: 04/14/2022 11:29:47 Multiple Drill Operator Date: 04/14/2022 14:48:00 Dictated By: GALINA BARKER MD; MA; FACP; FACC;
== END 2022-04-15 12:48 | disposition home or self-care (01) ==
LOC: CATH 06:42 → ICU 11:10 → CSD 15:00 → CATH 04-15 12:48
PROVIDERS: ATTEND Internal Medicine Cardiovascular Disease
DX: I25.119 Atherosclerotic heart disease of native coronary artery with unspecified angina pectoris (principal); T82.855A Stenosis of coronary artery stent, initial encounter; E66.01 Morbid (severe) obesity due to excess calories; E11.9 Type 2 diabetes mellitus without complications; K21.9 Gastro-esophageal reflux disease without esophagitis; K58.9 Irritable bowel syndrome, unspecified; I65.23 Occlusion and stenosis of bilateral carotid arteries; E78.2 Mixed hyperlipidemia; Y71.1 Therapeutic (nonsurgical) and rehabilitative cardiovascular devices associated with adverse incidents; Z79.82 Long term (current) use of aspirin; Z79.02 Long term (current) use of antithrombotics/antiplatelets; Z68.41 Body mass index [BMI] 40.0-44.9, adult; Z87.891 Personal history of nicotine dependence; Z79.4 Long term (current) use of insulin
CPT/HCPCS: 80048; 80053; 80061; 82947 ×2; 85027 ×2; 85610; 85730; 87081; 92920; 93005; 93458; 93571; C1725 ×7; C1769; C1894 ×2; 36415

== ENCOUNTER → 2022-10-30 | Outpatient (CLI) | payer MEDICARE ==
[~2022-10-30] MED LIST changes: +CARV12.53 PO; -INSU100I29 SQ; +INSU100I30 SQ; +INSU100I32 SQ; +LIRA0.6P SQ; +LOSA-415 PO; -LOSA50TA2 PO; +PANT40TA52 PO
--- NOTE | 2022-10-30 11:33 | Diagnostic Imaging Report ---
Indication: Dysphasia. Procedure was performed in conjunction with speech pathology. Video fluoroscopy was performed during swallowing of barium at multiple consistencies. A total of 50 seconds of fluoroscopic time was utilized. Cine fluoroscopy was performed. No single images were obtained. The reference air Kerma is 4.7 mgy. Patient ingested thin barium as well as applesauce, banana and cracker consistency. There were 2 episodes of flash penetration during swallowing of thin barium. All other swallows were unremarkable. No aspiration was observed. There is normal epiglottic tilt and laryngeal elevation. No vallecular or piriform sinus residue was detected. IMPRESSION: Essentially unremarkable modified barium swallow apart from 2 episodes of flash penetration with thin barium. No aspiration was observed. Dictated by: Dictated on workstation # [id number]
== END ==
LOC: RAD 10:00
PROVIDERS: ATTEND Internal Medicine Critical Care Medicine
DX: R13.10 Dysphagia, unspecified (principal); R09.89 Other specified symptoms and signs involving the circulatory and respiratory systems
CPT/HCPCS: 74230